=== PATIENT | male | born 1970 | race Caucasian/White ===

== ENCOUNTER → 2016-12-16 | Outpatient (CLI) | payer BC | END | disposition disaster alternative care site (69) | LOC: LHSC 12:49 | DX: K31.7 Polyp of stomach and duodenum (principal); K21.9 Gastro-esophageal reflux disease without esophagitis; R10.9 Unspecified abdominal pain ==

== ENCOUNTER → 2016-12-17 | Outpatient (CLI) | payer BC | END | disposition disaster alternative care site (69) | LOC: GRAD 17:26 | DX: R19.01 Right upper quadrant abdominal swelling, mass and lump (principal); R10.84 Generalized abdominal pain; K76.0 Fatty (change of) liver, not elsewhere classified; Q61.02 Congenital multiple renal cysts | CPT/HCPCS: Q9967 ==